=== PATIENT | male | born 1965 | race Caucasian/White ===

== ENCOUNTER 2024-09-13 10:05 | Outpatient (OUT) | payer BC, SELFPAY ==
--- NOTE | 2024-09-13 10:18 | XR_ITS ---
The [address] [address] Patient Name: DANNY GU MRN: [id number] date: 1965 Sex: M Assigned Patient Location: [facility] Current Patient Location: [facility] Accession/Order Number: [id number] Exam Date: 09/13/2024 10:51 Report Date: 09/13/2024 10:57 At the request of: BELLO CULLEN MD Procedure: XR lumbar spine 2-3V CLINICAL DATA: Back pain following injury THORACIC SPINE - 3 views: COMPARISON: None AP, lateral and swimmer's views were obtained. There is no acute compression fracture or displacement. The pedicles are intact. There is endplate spurring, greater distally. There are no paraspinal soft tissue abnormalities. XR/XR thoracic spine 3V IMPRESSION: MILD DEGENERATIVE CHANGE. NO ACUTE PLAIN FILM FINDINGS. LUMBAR SPINE - 2 views COMPARISON: None AP and lateral views were obtained. There are no acute fractures. There is minimal retrolisthesis of L2 on L3. The disc spaces are maintained. There is minor endplate spurring and lower lumbar facet hypertrophy. There is mild sclerosis at the SI joints. No paraspinal soft tissue abnormalities are seen. IMPRESSION: MINOR DEGENERATIVE CHANGES. NO ACUTE BONY FINDINGS. Impression dictated by: Jacque Andrea M.D.09/13/2024 10:57 AM Dictation Location: [place] [address] Electronically authenticated by: [id number] Y Date: 09/13/2024 10:57
--- NOTE | 2024-09-13 10:18 | XR_ITS ---
The [address] [address] Patient Name: DANNY GU MRN: [id number] date: 1965 Sex: M Assigned Patient Location: [facility] Current Patient Location: [facility] Accession/Order Number: [id number] Exam Date: 09/13/2024 10:51 Report Date: 09/13/2024 10:57 At the request of: BELLO CULLEN MD Procedure: XR lumbar spine 2-3V CLINICAL DATA: Back pain following injury THORACIC SPINE - 3 views: COMPARISON: None AP, lateral and swimmer's views were obtained. There is no acute compression fracture or displacement. The pedicles are intact. There is endplate spurring, greater distally. There are no paraspinal soft tissue abnormalities. XR/XR lumbar spine 2-3V IMPRESSION: MILD DEGENERATIVE CHANGE. NO ACUTE PLAIN FILM FINDINGS. LUMBAR SPINE - 2 views COMPARISON: None AP and lateral views were obtained. There are no acute fractures. There is minimal retrolisthesis of L2 on L3. The disc spaces are maintained. There is minor endplate spurring and lower lumbar facet hypertrophy. There is mild sclerosis at the SI joints. No paraspinal soft tissue abnormalities are seen. IMPRESSION: MINOR DEGENERATIVE CHANGES. NO ACUTE BONY FINDINGS. Impression dictated by: Jacque Andrea M.D.09/13/2024 10:57 AM Dictation Location: [place] [address] Electronically authenticated by: [id number] Y Date: 09/13/2024 10:57
== END 2024-09-13 10:06 | disposition home or self-care (01) ==
LOC: RAD 10:09
PROVIDERS: PCP Family Medicine; Visit Provider Family Medicine
DX: M54.9 Dorsalgia, unspecified (principal); M51.369 Other intervertebral disc degeneration, lumbar region without mention of lumbar back pain or lower extremity pain
CPT/HCPCS: 72072; 72100